=== PATIENT | male | born 1990 | race American Indian/Alaskan Native ===

== ENCOUNTER 2016-06-22 23:39 | Emergency (ER) | payer OTHER ==
[2016-06-23 00:49] VITALS: BP 157/100
[2016-06-23] MEDS ORDERED: TYLENOL PO ONE (00:49)
--- NOTE | 2016-06-23 07:48 | XRay Report ---
CHEST 2 VIEWS INDICATION: Cough. COMPARISON: None similar at this institution. FINDINGS: PA and lateral chest radiographs demonstrate normal cardiomediastinal silhouette. Clear lungs. Intact bones. CONCLUSION: No acute disease in the chest. Thank you for the opportunity to participate in this patient's care.
--- NOTE | 2016-06-24 12:41 | ED Elopement Review ---
ED Pt Elopement review - Call Back decision Pt Call Back Decision: No action required
== END 2016-06-23 08:00 | disposition left against medical advice (07) ==
LOC: ED 23:39
DX: R05 Cough (principal); J34.89 Other specified disorders of nose and nasal sinuses; M79.1 Myalgia; J02.9 Acute pharyngitis, unspecified; Z53.21 Procedure and treatment not carried out due to patient leaving prior to being seen by health care provider
CPT/HCPCS: 71020

== ENCOUNTER 2017-04-18 01:29 | Emergency (ER) | payer OTHER ==
[2017-04-18] MEDS ORDERED: PEPCID IV ONE ×2 (01:49→02:03)
[2017-04-18] MEDS ORDERED: NACL 0.9% 1000 ML 1,000 ML ONE (01:49)
[2017-04-18] MEDS ORDERED: BENADRYL ONE (01:50)
--- NOTE | 2017-04-18 02:02 | Emergency Department Report ---
ED Allergic Reaction HPI - General Chief complaint: Allergic Reaction Stated complaint: ALLERIGIC REACTION Time Seen by Provider: 04/18/17 01:57 Source: patient Mode of arrival: Ambulatory Limitations: No Limitations - History of Present Illness Initial Comments: Patient is 27 years old male with no significant past medical history he came today was an allergic reaction, patient stated that he went to a [employer] and he put A bejing on his face, he woke up with swollen face and difficulty swallowing and mild difficulty breathing MD Complaint: allergic reaction -: Gradual Exposure: other (hair cream called Bejing) Symptoms: difficulty swallowing, difficulty breathing. denies: rash, itching, orolingual swelling, hoarseness, nausea, vomiting, other, abdominal pain Severity: moderate Treatment Prior to Arrival: benadryl Previous Allergy History: none - Related Data Home Medications Medication Instructions Recorded Confirmed Last Taken No Known Home Medications [No 06/23/16 06/23/16 Unknown Reported Home Medications] Allergies Allergy/AdvReac Type Severity Reaction Status Date / Time No Known Allergies Allergy Unverified 06/23/16 00:49 ED Review of Systems ROS: Stated complaint: ALLERIGIC REACTION Other details as noted in HPI Comment: All other systems reviewed and negative Constitutional: denies: chills, fever ENT: throat pain Respiratory: shortness of breath Cardiovascular: denies: chest pain, palpitations, dyspnea on exertion Gastrointestinal: denies: abdominal pain, nausea, vomiting, diarrhea, constipation, hematemesis, melena, hematochezia Musculoskeletal: back pain Skin: denies: rash, lesions ED Past Medical Hx - Past Medical History Previous Medical History?: Yes Hx Hypertension: Yes - Surgical History Past Surgical History?: No - Social History Smoking Status: Current Every Day Smoker Substance Use Type: Alcohol - Medications Home Medications: Home Medications Medication Instructions Recorded Confirmed Last Taken Type No Known Home Medications [No 06/23/16 06/23/16 Unknown History Reported Home Medications] ED Physical Exam - General Limitations: No Limitations General appearance: alert, in no apparent distress - Head Head exam: Present: atraumatic, normocephalic, normal inspection - Eye Eye exam: Present: normal appearance, PERRL Pupils: Present: normal accommodation - ENT ENT exam: Present: normal exam, normal orophraynx, mucous membranes moist - Neck Neck exam: Present: normal inspection, full ROM. Absent: tenderness, meningismus, lymphadenopathy - Respiratory Respiratory exam: Present: normal lung sounds bilaterally. Absent: respiratory distress, wheezes, rales, rhonchi, stridor, chest wall tenderness, accessory muscle use, decreased breath sounds, prolonged expiratory - Cardiovascular Cardiovascular Exam: Present: regular rate, normal rhythm, normal heart sounds - GI/Abdominal GI/Abdominal exam: Present: soft, normal bowel sounds. Absent: distended, tenderness, guarding, rebound, rigid, organomegaly, mass, bruit, pulsatile mass , hernia - Back Exam Back exam: Present: normal inspection, full ROM. Absent: tenderness, CVA tenderness (R), CVA tenderness (L), muscle spasm, paraspinal tenderness - Neurological Exam Neurological exam: Present: alert, oriented X3, CN II-XII intact, normal gait - Skin Skin exam: Present: warm, intact, normal color. Absent: cyanosis, diaphoretic, erythema, urticaria, petechiae, pallor ED Course Vital Signs 04/18/17 04/18/17 04/18/17 01:31 01:32 01:46 Temperature 98.2 F Pulse Rate 102 H 98 H 95 H Respiratory 22 23 Rate Blood Pressure 170/112 170/112 165/109 O2 Sat by Pulse 97 96 96 Oximetry 04/18/17 04/18/17 04/18/17 02:00 02:16 02:30 Temperature Pulse Rate 93 H 89 88 Respiratory 26 H 27 H 27 H Rate Blood Pressure 149/107 149/107 152/100 O2 Sat by Pulse 96 98 98 Oximetry 04/18/17 04/18/17 04/18/17 02:46 03:00 03:16 Temperature Pulse Rate 87 84 84 Respiratory 26 H 24 23 Rate Blood Pressure 152/100 151/99 151/99 O2 Sat by Pulse 97 99 99 Oximetry 04/18/17 04/18/17 04/18/17 03:30 03:46 03:52 Temperature Pulse Rate 82 89 Respiratory 18 26 H 16 Rate Blood Pressure 145/95 145/95 O2 Sat by Pulse 100 99 100 Oximetry 04/18/17 04/18/17 04/18/17 03:53 04:00 04:16 Temperature Pulse Rate 84 87 93 H Respiratory 19 17 Rate Blood Pressure 148/103 151/99 O2 Sat by Pulse 99 99 Oximetry 04/18/17 04/18/17 04/18/17 04:30 04:46 05:00 Temperature Pulse Rate 89 87 83 Respiratory 26 H 24 23 Rate Blood Pressure 146/103 146/103 149/87 O2 Sat by Pulse 97 98 96 Oximetry - Reevaluation(s) Reevaluation #1: 04/18/17 04:40 Patient stated that he is feeling much better and his symptoms is completely resolved. Reevaluation #2: 04/18/17 05:18 Patient stated that he is feeling much better and he is ready to go home. Critical care attestation.: If time is entered above; I have spent that time in minutes in the direct care of this critically ill patient, excluding procedure time. ED Disposition Clinical Impression: Acute allergic reaction Disposition: DC-01 TO HOME OR SELFCARE Is pt being admited?: No Condition: Stable Instructions: Allergies (ED) Referrals: ROSA MARIA MARTINEZ MD [Primary Care Provider] - 3-5 Days
[2017-04-18] MEDS ORDERED: NACL 0.9% 1000 ML 1,000 ML IV ONE (02:03)
[2017-04-18] MEDS ORDERED: BENADRYL IV ONE (02:03)
[2017-04-18 05:11] VITALS: BP 149/87
== END 2017-04-18 05:54 | disposition home or self-care (01) ==
LOC: ED 01:29
DX: T78.40XA Allergy, unspecified, initial encounter (principal); I10 Essential (primary) hypertension; F17.200 Nicotine dependence, unspecified, uncomplicated; X58.XXXA Exposure to other specified factors, initial encounter
CPT/HCPCS: 96361; 96374; 96375; 99282; J1200; J2930; J7030